=== PATIENT | male | born 1950 | race Caucasian/White ===

== ENCOUNTER 2021-05-12 09:36 | Outpatient (CLI) | payer MEDICARE, OTHER, SELFPAY ==
--- NOTE | 2021-05-12 10:41 | ECG_ITS ---
Measurements Intervals [place] Rate: 60 P: 34 OK: 179 QRS: -44 QRSD: 111 T: 19 QT: 424 QTc: 424 Interpretive Statements SINUS RHYTHM LEFT AXIS DEVIATION BORDERLINE T WAVE ABNORMALITY- INFERIOR LEADS BASELINE ARTIFACT- I, II, III, AVR, AVL, AVF BORDERLINE ECG Electronically Signed On 05-12-2021 11:06:03 [employer]GLISH [employer] by Kvng De Luna D.O.
[2021-05-12 11:07] LABS: Basophils Percent Auto 0.5 % (0.2-1.2); Eosinophils Absolute Auto 0.1 K/mm3 (0-0.3); Eosinophils Percent Auto 2.2 % (0-4.4); Hematocrit 45.9 % (37.0-47.0); Hemoglobin 15.3 g/dL (12.0-15.0); Immature Granulocyte Absolute 0.01 K/mm3 (0.00-0.031); Immature Granulocyte Percent A 0.2 % (0-0.5); Lymphocytes Absolute Auto 2.09 K/mm3 (0.9-3.2); Lymphocytes Percent Auto 32.1 % (18.3-44.2); Mean Corpuscular HGB Conc 33.3 g/dl (32-36); Mean Corpuscular Hemoglobin 31.5 pg (26-34); Mean Corpuscular Volume 94.6 fl (80-100); Mean Platelet Volume 9.4 fl (7.4-10.4); Monocytes Absolute Auto 0.6 K/mm3 (0.1-0.6); Monocytes Percent Auto 8.6 % (2.6-8.5); Neutrophils Absolute Auto 3.7 K/mm3 (1.3-6.7); Neutrophils Percent Auto 56.4 % (45.5-73.1); Platelet Count Result 215 k/mm3 (150-375); Red Blood Count 4.85 M/mm3 (4.2-5.4); Red Cell Distribution Width 12.4 % (11.5-14.5); White Blood Count 6.5 K/mm3 (4.5-10.0)
[2021-05-12 11:17] LABS: INR 0.9; Prothrombin Time 12.2 Seconds (11.1-14.7)
[2021-05-12 11:18] LABS: Partial Thromboplastin Time 25.8 SECONDS (22.3-36.8)
[2021-05-12 11:32] LABS: Alanine Aminotransferase 30 U/L (4-35); Albumin Level 4.8 g/dL (3.5-5.1); Alkaline Phosphatase 95 U/L (38-126); Anion Gap 8 mmol/L (8-16); Aspartate Amino Transferase 31 U/L (14-36); Bilirubin,Total 2.1 mg/dL (0.2-1.3); Blood Urea Nitrogen 15 mg/dL (7-17); Calcium 9.4 mg/dL (8.4-10.2); Carbon Dioxide 28 mmol/L (22-30); Chloride 101 mmol/L (98-107); Estimated Glomerular Filt Rate > 60; Glucose 121 mg/dL (65-110); Potassium 4.1 mmol/L (3.4-5.0); Sodium 137 mmol/L (137-145)
== END 2021-05-12 09:37 | disposition home or self-care (01) ==
LOC: ANHSURGERY 09:44
PROVIDERS: Visit Provider Urology
DX: Z01.818 Encounter for other preprocedural examination (principal); C61 Malignant neoplasm of prostate; I10 Essential (primary) hypertension; Z51.81 Encounter for therapeutic drug level monitoring; Z79.899 Other long term (current) drug therapy
CPT/HCPCS: 36415; 80053; 85025; 85610; 85730; 86850; 86900; 86901; 87086; 93005

== ENCOUNTER 2021-05-23 00:03 | Day surgery (SDC) | payer MEDICARE, OTHER, SELFPAY ==
[2021-05-12 09:51] VITALS: BMI 34.4
--- NOTE | 2021-05-12 10:20 | PC.NURSE ---
Report to the Outpatient Waiting Room, entrance under the green pavilion located off [facility], at time _0600 on date __05/23/21 . OR Time: 729 . - You and your visitor will be asked a series of questions to screen for COVID 19 for your protection. - A mask is required within the hospital. - Only one visitor is allowed at this time. Patient visitors will be guided where to wait when not with patient. Preoperative COVID Testing Requirements: No COVID Test needed if: (proof is required; if not received patient will have Rapid Test prior to entry) - Patient has received COVID Vaccine at least 14 days prior to procedure date or - Patient has positive COVID test result within last 90 days of surgery date. COVID Test needed if above criteria is not met If not COVID vaccinated a COVID test must be conducted within 72 hours of surgery and patient is asked to isolate self from time of testing until procedure. You will go to the [facility] for your COVID testing. The [facility] site is located at the corner of [address] [facility]. You will only be called if COVID results are positive and your surgeon may reschedule your elective surgery date. Patients may have clear liquids (water, carbonated beverages, clear teas, apple juice) until 3 hours prior to surgery with a maximum of 20 ounces. - No food from midnight until time of surgery - Infants may have breast milk until 4 hours before surgery, infant formula 6 hours prior to surgery. - Children will be allowed to drink immediately following surgery. If applicable, please bring a bottle or sippy cup to assist with drinking. Juice, water, soda, and popsicles are readily available. For infants on formula, please bring formula the day of surgery. Pacifiers are allowed. Take the following medications with a SIP of water the morning of surgery: __NONE Medications to discontinue per physician __ASPIRIN 7 DAYS PRE OP AND ALL VITAMINS AND SUPPLEMENTS 3 DAYS PREOP Date to take last dose__ASPIRIN 05/15/21 AND VITAMINS AND SUPPLEMENTS 05/19/21 Please no make-up, nail gambian, hairspray, perfume, deodorant, or body powder the day of surgery. No jewelry (including any body piercings) or valuables the day of surgery, leave them at home. Please take a shower or bath the night before, or the morning of, surgery with an antibacterial soap. Wear comfortable, loose fitting clothing. Children are encouraged to wear pajamas. - Jewelry must be removed prior to entering the operating room. Rings and piercings that are not removed may be cut off. - The hospital will not accept responsibility for valuables. - Please leave all valuables, including medications, at home the day of surgery. If you are going home after surgery, a licensed laborer driver must drive you home. - NO public transportation without another adult. - We recommend that an adult stay with you for 24 hours following discharge. - We also recommend that you do not drive, make important decision, drink alcoholic beverages, or take any drugs that were not prescribed by your health care provider for at least 24 hours after your discharge time. For Pediatric surgeries, we recommend two adults accompany the child home (only one inside the building at this time). Follow any additional instructions given to you from your surgeon. VERBAL instructions given to _PATIENT AND SPOUSE and asked if any additional questions and then verbalized understanding. Patient advised to call surgeon office or pre surgery nurse liaison [phone] if any additional questions.
[2021-05-12 10:42] VITALS: BP 128/81; PULSE 63; RESP 16; TEMP 36.8; O2SAT 98
[2021-05-23] VITALS (13 sets, daily range): BP systolic 115–144; BP diastolic 64–82; PULSE 70–91; RESP 12–20; TEMP 36.2–37.2; O2SAT 92–98
[2021-05-23] MEDS: LACTATED RINGERS 1,000 ML 30 ML IV CONT ×3 (06:45→12:31)
[2021-05-23 07:01] LABS: Glucose Point of Care 108 mg/dl (65-105)
--- NOTE | 2021-05-23 07:18 | WPDHPUPDATE1 ---
History and Physical Update Update Date/Time: 05/23/21 07:18 History and Physical has been reviewed, including an updated exam of the patient. There are NO changes in the patient's condition. Risks, benefits, and alternatives have been discussed and questions answered. Patient agrees to proceed with procedure.
[2021-05-23] MEDS: ceFAZolin 2 GM/D5W 50 ML 2 GM/50 ML BAG IVPB (07:28)
[2021-05-23] MEDS: BUPIVACAINE HCL 0.5% PF 30 ML VIAL INFILTRATE (08:31)
--- NOTE | 2021-05-23 11:39 | W.PM.PROC2 ---
Procedure Note - Detailed Date of Procedure 05/23/21 Pre-op Diagnosis prostate CA Post-op Diagnosis same Procedure Performed Extensive a diesel lysis of bowel adhesions, robotic assisted nerve-sparing prostatectomy with bilateral pelvic lymphadenectomy Surgeon Jose Manuel Aguilar MD Anesthesia general Description of Procedure Patient is taken the operative suite correctly identified. Once anesthesia was obtained he was placed in dorsal lithotomy position prepped draped usual sterile fashion. Eighteen Japanese Justice was placed with 20 cc in the balloon. Supraumbilical incision was made and carried down to the rectus fascia. Veress needle was inserted and the abdomen was insufflated to 15 mmHg pressure. Camera port was then placed under direct vision. He has extensive adhesions along the right side lower pelvis as well as deep in the cul-de-sac. We placed our working ports in the appropriate locations and docked the robot. We then went ahead and did the adhesions lyse is which took at least 30 minutes to accomplish. We then did a posterior approach. Seminal vesicles were dissected out in their entirety. Vessels were transected. Plane between the prostate and rectum were developed. Bladder was then taken down. Space of Retzius was developed bilaterally. Puboprostatic were taken down. Dorsal venous complex was isolated using an 0 Vicryl secured to the pubic bone. Bladder neck was then opened. Bladder neck sparing procedure was performed. Posterior plane was incised to expose previously dissected seminal vesicles and vas. Bilateral nerve-sparing was then performed a standard fashion. Pedicles were taken and clipped. Prostate was lifted off the rectum. Dorsal venous complex was transected. Urethra was also transected with a nice urethral stump. The specimen was placed in Endo-Catch bag. Bilateral pelvic lymph node dissections were performed in the standard fashion. Clips were placed proximally and distally on the packets. A clip was placed on the left lymph node packet for identification. These also were placed in the Endo-Catch bag and secured. A Osbaldo stitch was then placed using 0 Vicryl. Urethral stump was anastomosed to the bladder using V lock suture in a running fashion. There was good approximation of mucosa. Eighteen Japanese Justice was then placed and inflated with 10 cc sterile water. The bladder was filled with 150 cc sterile water and there was no evidence of extravasation at this time. PAOLA was then placed through the 3rd working port site. All lap count needle count sponge counts were correct. The robot was undocked. The specimen was brought out through the midline incision. Midline incision was closed using 0 Vicryl in a running fashion. Subcuticular stitches were placed. 1% lidocaine was used anesthetize the port sites and skin. Patient is taken recovery room stable condition. Estimated Blood Loss 100 Drains Yes Packing No Pathology yes Complications No immediate complications Condition stable Disposition PACU
[2021-05-23] MEDS: fentaNYL CITRATE INJ (*CRX) 100 MCG/2 ML VIAL 25 MCG IV PUSH ×6 (12:10→13:06)
[2021-05-23 12:28] LABS: Glucose Point of Care 160 mg/dl (65-105)
[2021-05-23] MEDS: HYDROcodone/acetaminophen (*CRX) 5-325 MG TABLET 1 TAB PO (13:46)
[2021-05-23] MEDS: LACTATED RINGERS 1,000 ML 125 ML IV CONT ×2 (13:47→22:43)
[2021-05-23] MEDS: metFORMIN HCL 500 MG TABLET PO (16:42)
[2021-05-23] MEDS: DOCUSATE SODIUM 100 MG CAPSULE PO (16:42)
[2021-05-23 16:57] LABS: Glucose Point of Care 186 mg/dl (65-105)
[2021-05-23] MEDS: ATORVASTATIN 40 MG TABLET PO (21:22)
[2021-05-24] MEDS: HYDROcodone/acetaminophen (*CRX) 5-325 MG TABLET 1 TAB PO ×2 (03:45→08:57)
[2021-05-24 04:00] VITALS: BP 130/62; PULSE 80; RESP 20; O2SAT 98
[2021-05-24 06:53] LABS: Hematocrit 36.2 % (42.0-52.0); Hemoglobin 12.2 g/dL (14.0-18.0)
[2021-05-24 07:05] VITALS: BP 122/65; PULSE 64; RESP 16; TEMP 36.6; O2SAT 97
[2021-05-24 07:12] LABS: Anion Gap 4 mmol/L (8-16); Blood Urea Nitrogen 14 mg/dL (9-20); Calcium 8.4 mg/dL (8.4-10.2); Carbon Dioxide 28 mmol/L (22-30); Chloride 100 mmol/L (98-107); Estimated CRCL calculation 69 ml/min; Estimated Glomerular Filt Rate > 60; Glucose 115 mg/dL (65-110); Potassium 3.7 mmol/L (3.4-5.0); Sodium 132 mmol/L (137-145)
[2021-05-24 07:18] LABS: Glucose Point of Care 119 mg/dl (65-105)
[2021-05-24] MEDS: DOCUSATE SODIUM 100 MG CAPSULE PO (08:32)
[2021-05-24] MEDS: hydroCHLOROthiazide 12.5 MG CAPSULE PO (08:33)
[2021-05-24] MEDS: lisinopriL 20 MG TABLET 40 MG PO (08:33)
[2021-05-24] MEDS: levoFLOXacin 500 MG TABLET PO (08:33)
[2021-05-24] MEDS: metFORMIN HCL 500 MG TABLET PO (08:33)
--- NOTE | 2021-05-24 10:31 | WPDANESPN ---
Anes - Prog Note Post-Op Date/Time: 05/24/21 10:31 Cardiovascular status: normal Respiratory status: normal Airway patency: baseline Mental status: baseline Post-Op hydration status: normal Vital Signs: Last Vital Signs Temp 36.6 C 05/24/21 07:05 Pulse 64 05/24/21 07:05 Resp 16 05/24/21 07:05 BP 122/65 05/24/21 07:05 Pulse Ox 97 05/24/21 07:05 Pain Score (VAS): 0 I/O: Intake & Output 05/23/21 05/24/21 05/24/21 23:59 07:59 15:59 Intake Total 1000 400 Output Total 1260 1240 Balance -260 -1240 400 Laboratory Tests 05/24/21 06:36 05/24/21 06:36 05/23/21 05/23/21 05/24/21 12:20 16:41 06:36 Hgb 12.2 L D Hct 36.2 L Sodium Potassium Chloride Carbon Dioxide Anion Gap BUN Creatinine Estim Creat Clear Calc Estimated GFR Glucose POC Capillary Glucose 160 H 186 H Calcium 05/24/21 05/24/21 06:36 07:16 Hgb Hct Sodium 132 L Potassium 3.7 Chloride 100 Carbon Dioxide 28 Anion Gap 4 L BUN 14 Creatinine 1.10 Estim Creat Clear Calc 69 Estimated GFR > 60 Glucose 115 H POC Capillary Glucose 119 H Calcium 8.4 Post-procedural complaints: none Patient Feedback: Patient satisfied with anesthetic care.
[2021-05-24 11:05] VITALS: BP 116/66; PULSE 62; RESP 16; TEMP 36.6; O2SAT 96
--- NOTE | 2021-05-24 13:49 | WPDUROPN2 ---
Progress Note: A&P Assessment and Plan (1) Post-op pain: Code(s): G89.18 - Other acute postprocedural pain Status: Acute Assessment and Plan: well controlled (2) Prostate cancer: Code(s): C61 - Malignant neoplasm of prostate Status: Acute Assessment and Plan: Remove PAOLA drain, send home with kunz. OK to discharge. Subjective Subjective Date/Time Seen: 05/24/21 13:49 POD #1 Extensive a diesel lysis of bowel adhesions, robotic assisted nerve-sparing prostatectomy with bilateral pelvic lymphadenectomy. Patient doing well, minimal pain, PAOLA minimal output. URine is clear draining to gravity. Incisions are all approximated. Passing flatus, sitting up in chair, tolerating diet well. Review of Systems Respiratory: Respiratory: Reports no additional respiratory complaints Gastrointestinal: Gastrointestinal: Reports no additional gastrointestinal complaints, Reports abdominal pain (at incisions only), Denies nausea and Denies vomiting Genitourinary: Genitourinary: Denies hematuria Exam Resp: Effort & Inspection: normal respiratory effort Cardio: Rate: regular rate GI: Inspection: incision (all well approximated, no drainge or edema, PAOLA drain intact, draining ) : General: Yes no CVA tenderness Urinary Catheter: Urinary Catheter: patent and draining and urine clear Extrem: General: no edema Objective Data Vital Signs Vital Signs: Vital Signs - 24 hr 05/23/21 14:05 05/23/21 14:24 05/23/21 15:05 Temperature 97.6 F 99.0 F Pulse Rate 77 77 79 Respiratory Rate 16 16 18 Blood Pressure 138/68 136/64 Pulse Oximetry 98 98 95 05/23/21 17:30 05/23/21 20:00 05/24/21 04:00 Temperature 98.1 F Pulse Rate 88 80 80 Respiratory Rate 18 20 20 Blood Pressure 139/71 115/70 130/62 Pulse Oximetry 94 97 98 05/24/21 07:05 05/24/21 11:05 Temperature 97.8 F 97.8 F Pulse Rate 64 62 Respiratory Rate 16 16 Blood Pressure 122/65 116/66 Pulse Oximetry 97 96 Intake/Output Intake/Output: Intake & Output 05/21/21 05/22/21 05/23/21 05/24/21 23:59 23:59 23:59 23:59 Intake Total 1450 400 Output Total 1570 1680 Balance -120 -1280 Meds/Results Medications: Active Medications Generic Name Dose Route Start Last Admin Trade Name Freq PRN Reason Stop Dose Admin Hydrocodone Bitart/Acetaminophen 1 tab 05/23/21 13:20 05/24/21 08:57 Hydrocodone/Acetaminophen (*Crx) 5-325 Mg Tablet PO 1 tab Q6H PRN Administration Pain Rated 1-3 Hydrocodone Bitart/Acetaminophen 2 tab 05/23/21 13:20 Hydrocodone/Acetaminophen (*Crx) 5-325 Mg Tablet PO Q6H PRN Pain Rated 4-6 Atorvastatin Calcium 40 mg 05/23/21 21:00 05/23/21 21:22 Atorvastatin 40 Mg Tablet PO 40 mg HS SARAH Administration Docusate Sodium 100 mg 05/23/21 17:00 05/24/21 08:32 Docusate Sodium 100 Mg Capsule PO 100 mg BID SARAH Administration Hydrochlorothiazide 12.5 mg 05/24/21 09:00 05/24/21 08:33 Hydrochlorothiazide 12.5 Mg Capsule PO 12.5 mg DAILY SARAH Administration Hyoscyamine 0.125 mg 05/23/21 13:20 Hyoscyamine Sulfate 0.125 Mg Tablet SUBLINGUAL Q4H PRN Bladder Spasm Lactated Ringer's 1,000 mls @ 125 mls/hr 05/23/21 13:20 05/23/21 22:43 Lr - Lactated Ringers Iv IV CONT 125 mls/hr .Q8H SARAH Administration Levofloxacin 500 mg 05/24/21 09:00 05/24/21 08:33 Levofloxacin 500 Mg Tablet PO 500 mg DAILY SARAH Administration Lisinopril 40 mg 05/24/21 09:00 05/24/21 08:33 Lisinopril 20 Mg Tablet PO 40 mg DAILY SARAH Administration Metformin HCl 500 mg 05/23/21 17:00 05/24/21 08:33 Metformin Hcl 500 Mg Tablet PO 500 mg BIDWM SARAH Administration Morphine Sulfate 1 mg 05/23/21 13:20 Morphine Sulfate (*Crx) 2 Mg/Ml Inj IV PUSH Q2H PRN Pain Rated 7-10 Naloxone HCl 0.1 mg 05/23/21 13:20 Naloxone Hcl 0.4 Mg/Ml Vial IV PUSH Q2M PRN Opiate Reversal Ondansetron HCl 4 mg 05/23/21 13:
== END 2021-05-24 14:00 | disposition home or self-care (01) ==
LOC: ANHSURGERY 06:02 → ANHSUROVER 13:22
PROVIDERS: Visit Provider Urology
PROC: 0VT04ZZ Resection of Prostate, Percutaneous Endoscopic Approach (ICD-10-PCS; CPT 55867; principal; 2021-05-23 07:30)
DX: C61 Malignant neoplasm of prostate (principal); K66.0 Peritoneal adhesions (postprocedural) (postinfection); G89.18 Other acute postprocedural pain; Z79.84 Long term (current) use of oral hypoglycemic drugs; Z79.82 Long term (current) use of aspirin
CPT/HCPCS: 55866; 38571; S2900; 36415; 80048; 82948; 85014; 85018; 88305; 88307; 88309; A9270; J0690; J1100; J2250; J2270; J2370; J2405; J2704; J2710; J3010; J7030; J7120